=== PATIENT | male | born 1980 | race African-American/Black ===

== ENCOUNTER 2023-04-06 13:31 | Emergency (ER) | payer OTHER ==
[2023-04-06] MEDS ORDERED: Tetracaine 0.5% PF 4 ML BOT ONE (13:36)
[2023-04-06] MEDS ORDERED: Fluorescein Opthalmic Strip ONE (13:36)
== END 2023-04-06 14:07 | disposition home or self-care (01) ==
LOC: BURERS 13:31
DX: H16.8 Other keratitis (principal); I10 Essential (primary) hypertension; F17.210 Nicotine dependence, cigarettes, uncomplicated; Z79.899 Other long term (current) drug therapy
CPT/HCPCS: 99283